=== PATIENT | female | born 1970 | race Two or more races ===

== ENCOUNTER 2023-07-12 07:24 | Outpatient (CLI) | payer OTHER | END 2023-07-12 07:25 | disposition home or self-care (01) | LOC: NUCLEAR 07:24 | PROVIDERS: ATTEND Internal Medicine Hematology & Oncology | DX: C54.1 Malignant neoplasm of endometrium (principal); C78.01 Secondary malignant neoplasm of right lung; C78.02 Secondary malignant neoplasm of left lung ==

== ENCOUNTER 2024-01-17 13:09 | Outpatient (CLI) | payer OTHER | END 2024-01-17 13:12 | disposition home or self-care (01) | LOC: NUCLEAR 13:09 | PROVIDERS: ATTEND Internal Medicine Hematology & Oncology | DX: M81.0 Age-related osteoporosis without current pathological fracture (principal) ==

== ENCOUNTER → 2024-02-02 07:07 | Outpatient (CLI) | payer OTHER | END | disposition home or self-care (01) | LOC: NUCLEAR 06:00 | PROVIDERS: ATTEND Internal Medicine Hematology & Oncology | DX: C54.1 Malignant neoplasm of endometrium (principal); C79.51 Secondary malignant neoplasm of bone; R97.0 Elevated carcinoembryonic antigen [CEA] ==